=== PATIENT | male | born 1960 | race Hispanic/Latino ===

== ENCOUNTER 2022-01-06 00:39 | Emergency (ER) | payer MEDICAID ==
[~2022-01-06] VITALS: Ht 165.1 cm; Wt 81.6 kg
[2022-01-06 02:27] LABS: HEMATOCRIT 42.6 % (42-54); MEAN CORPUSCULAR HEMOGLOBIN 32.2 pg (27.0-33.0); MEAN CORPUSCULAR HGB CONC 35.7 g/dL (32.0-36.0); MEAN CORPUSCULAR VOLUME 90.3 fL (79-99); PLATELET COUNT (AUTO) 218 K/uL (130-400); RED BLOOD CELL COUNT(AUTO) 4.72 MIL/uL (4.50-6.20); RED CELL DISTRIBUTION WIDTH 11.9 % (11.0-15.5)
[2022-01-06 02:34] LABS: BASOPHILS % (AUTO) 0.5 % (0.0-5.0); EOSINOPHILS % (AUTO) 2.3 % (0.0-8.0); LYMPHOCYTES % (AUTO) 32.6 % (21.0-51.0); NEUTROPHILS % (AUTO) 53.3 % (40.0-77.0)
[2022-01-06 02:40] LABS: PHENYTOIN (DILANTIN) 6.8 mcg/mL (10.0-20.0)
[2022-01-06 02:45] LABS: ALBUMIN 4.2 g/dL (3.5-5.0); BILIRUBIN,TOTAL 0.5 mg/dL (0.2-1.0); CREATININE 0.6 mg/dL (0.5-1.5); MAGNESIUM 1.8 mg/dL (1.80-2.40); POTASSIUM 3.8 mmol/L (3.5-5.1)
[2022-01-06] MEDS ORDERED: PHENYTOIN SODIUM 100 MG ERCAP PO ONE (03:00)
[2022-01-06] MEDS ORDERED: PHENYTOIN SODIUM 250MG (50 MG/ML) VIAL ONE (03:02)
[2022-01-06 03:33] VITALS: BP 146/74
== END 2022-01-06 03:41 | disposition home or self-care (01) ==
LOC: EDH 00:39
DX: F41.9 Anxiety disorder, unspecified (principal); G40.909 Epilepsy, unspecified, not intractable, without status epilepticus; R41.82 Altered mental status, unspecified; R51.9 Headache, unspecified; I10 Essential (primary) hypertension
CPT/HCPCS: 36415; 80053; 80184; 80185; 83735; 85025; 99283; J1165

== ENCOUNTER → 2022-04-25 | Outpatient (CLI) | payer MEDICAID, OTHER | END | disposition home or self-care (01) | LOC: RAH 13:10 | PROVIDERS: ATTEND Internal Medicine Cardiovascular Disease | DX: Z13.6 Encounter for screening for cardiovascular disorders (principal) | CPT/HCPCS: 75571 ==